=== PATIENT | male | born 1990 | race Caucasian/White ===

== ENCOUNTER → 2019-11-09 | Outpatient (CLI) | payer MEDICAID ==
--- NOTE | 2019-11-09 14:29 | Diagnostic Imaging Report ---
INDICATION: Pre-MRI screening. TIME OF EXAM: 2:17 PM Single view of the orbits was performed. No radiopaque orbital foreign bodies are identified. IMPRESSION: No radiopaque orbital foreign bodies. Dictated by: Dictated on workstation # [id number]
--- NOTE | 2019-11-09 15:57 | Diagnostic Imaging Report ---
PROCEDURE: MRI right joint upper extremity without contrast. TECHNIQUE: Multiplanar, multisequence non contrast-enhanced MRI of the right upper extremity was accomplished. INDICATION: Wrist pain. COMPARISON: None available. FINDINGS: Intrinsic ligaments: There is mild widening of the scapholunate interval. The dorsal band of scapholunate ligament appears to remain intact but may be stretched. The volar/palmar band is poorly defined and may be partially torn. TFC articular disc is intact. Lunotriquetral ligament and the central membranous portions of the scapholunate ligament are suboptimally evaluated without intra-articular contrast. Tendons: Flexor tendons are intact without tenosynovitis. Extensor tendons are normally positioned and have no surrounding inflammation. Bones: There is some intramedullary T2 hyperintense signal involving the lunate which has some patchy T1 hypointense signal. Remainder of the osseous structures are normal in signal. Soft tissues: No mass effect on the median or ulnar nerves. No soft tissue ganglion are seen around the wrist. IMPRESSION: 1. Edema-like signal within the lunate is suspicious for early osteonecrosis (Kienb?ck's disease). 2. At least partial tear of the scapholunate ligament, predominantly involving the palmar band. Dictated by: Dictated on workstation # [id number]
== END ==
LOC: RAD 13:51
PROVIDERS: ATTEND Nurse Practitioner
DX: M25.331 Other instability, right wrist (principal)
CPT/HCPCS: 73221

== ENCOUNTER → 2022-04-23 | Outpatient (CLI) | payer MEDICAID ==
--- NOTE | 2022-04-23 17:44 | Diagnostic Imaging Report ---
EXAMINATION: Right wrist radiographs, 4 views. COMPARISON: None. HISTORY: 31-year-old male, right wrist pain. FINDINGS: There is no identified acute fracture. Bone mineralization and alignment is unremarkable. Joint spaces are well preserved. There is no radiopaque foreign body. IMPRESSION: 1. Unremarkable radiographs of the right wrist. Dictated by: Dictated on workstation # [id number]
== END ==
LOC: RAD FS 11:01
PROVIDERS: ATTEND Nurse Practitioner
DX: M25.331 Other instability, right wrist (principal)
CPT/HCPCS: 73110

== ENCOUNTER → 2022-09-29 | Outpatient (CLI) | payer MEDICAID | LOC: CARDFS 14:14 | PROVIDERS: ATTEND Internal Medicine Cardiovascular Disease | DX: R06.09 Other forms of dyspnea (principal) | CPT/HCPCS: 93306 ==

== ENCOUNTER 2023-01-11 05:29 | Emergency (ER) | payer MEDICAID ==
[~2023-01-11] VITALS: Ht 172.7 cm; Wt 96.2 kg
[2023-01-11] MEDS ORDERED: KETOROLAC INJ 15 MG/ML VIAL IM ONE (06:00)
--- NOTE | 2023-01-11 06:03 | ED Lower Extremity ---
General Chief Complaint: Lower Extremity Stated Complaint: RIGHT ANKLE PAIN Nursing Triage Note: Pt presents per POV to ED ambulating to ED Overflow reporting R foot pain that first began on Wednesday morning when he awoke. Pt has tried resting and ice application but awoke again at 0100 and severe pain began. Denies injury/trauma Source: patient Exam Limitations: no limitations History of Present Illness Date Seen by Provider: Jan 11, 2023 Time Seen by Provider: 05:33 Initial Comments 32-year-old male with no pertinent past medical history coming in due to right Achilles pain. This started Wednesday after "playing rough" with the kids including a lot of wrestling. He never felt a pop, but woke up Wednesday morning with a lot more pain. Now this morning around 1 AM when he woke up the pain was significant. He took some Tylenol and 1/4 pill of the muscle relaxer which did not help. Denies any fever, redness, swelling, recent surgery, history of DVT or PE, hemoptysis, chest pain, shortness of breath, or any other concerns. It is difficult to walk. Allergies and Home Medications Allergies Coded Allergies: amoxicillin (Unverified Adverse Reaction, Unknown, 01/11/23) Patient Home Medication List Home Medication List Reviewed: Yes No Active Prescriptions or Reported Meds Review of Systems Constitutional: No fever EENTM: no symptoms reported Respiratory: no symptoms reported Cardiovascular: no symptoms reported Gastrointestinal: no symptoms reported Genitourinary: no symptoms reported Musculoskeletal: see HPI Skin: no symptoms reported Psychiatric/Neurological: No Symptoms Reported Past Tcfmksz-Bfdinc-Kqtsam Hx Patient Social History Tobacco Use?: No Use of E-Cig and/or Vaping dev: No Substance use?: No Alcohol Use?: Yes Alcohol Frequency: Once in a while Pt feels they are or have been: No Immunizations Up To Date Influenza Vaccine Up-to-Date: No; Not Current First/Initial COVID19 Vaccinat: Unvaccinated Past Medical History Surgery/Hospitalization HX: ORIF R hand, ORIF L foot Physical Exam Vital Signs Vital Signs - First Documented 01/11/23 05:32 Temp 36.8 Pulse 75 Resp 20 B/P (MAP) 136/109 (118) Pulse Ox 98 O2 Delivery Room Air Capillary Refill : Less Than 3 Seconds Height, Weight, BMI Height: '" Weight: lbs. oz. kg; 32.00 BMI Method: General Appearance: WD/WN, mild distress HEENT: PERRL/EOMI, normal ENT inspection, pharynx normal Neck: non-tender, full range of motion, supple, normal inspection Cardiovascular: regular rate, rhythm, no edema, no murmur Respiratory: chest non-tender, lungs clear, normal breath sounds, no respiratory distress, no accessory muscle use Knees: bilateral knee non-tender, bilateral knee normal inspection, bilateral knee normal range of motion, bilateral knee no evidence of injury Ankles: left ankle non-tender; bilateral ankle normal inspection; left ankle normal range of motion, left ankle no evidence of injury; right ankle other (Pain with light touch to the retro-Achilles bursa as well as the distal Achilles itself, no calf tenderness at the calf itself, but does aggravate the Achilles, neurovascularly intact) Feet: bilateral foot non-tender, bilateral foot normal inspection, bilateral foot normal range of motion, bilateral foot no evidence of injury Neurologic/Tendon: normal sensation, normal motor functions, normal tendon functions Neurologic/Psychiatric: no motor/sensory deficits, alert, normal mood/affect Skin: normal color, warm/dry Progress/Results/Core Measures Results/Orders My Orders Orders - NATO NICHOLS MD Ketorolac Injection (Ketorolac Injection (01/11/23 06:00) Vital Signs/I&O 01/11/23 05:32 Temp 36.8 Pulse 75 Resp 20 B/P (MAP) 136/109 (118) Pulse Ox 98 O2 Delivery Room Air Blood Pressure Mean: 118 Progress Progress Note : Progress Note 32-year-old male with above history coming in due to right Achilles pain. ABCs were intact and vitals were stable on presentation. His Achilles is intact on exam with no evidence of rupture. He is tender in the body of the Achilles as well as the retro-Achilles bursa making the differential more likely Achilles tendinitis versus retro-Achilles bursitis. Clinically not consistent with a DVT. I did a [id number] ultrasound as well, confirming his Achilles is intact, no fluid collections, and no superficial or deep venous thrombosis based on my exam as well. He will be given a shot of Toradol here and should follow- up with the orthopedist here in town with a phone call this morning. Departure Impression Primary Impression: Achilles tendinitis, left leg Disposition: 01 HOME, SELF-CARE Condition: Stable Departure-Patient Inst. Decision time for Depature: 06:05 Referrals: MARYELLEN GATES MD (PCP) Primary Care Physician TITO BALLARD Patient Instructions: Achilles Tendinopathy (DC) Add. Discharge Instructions: Based on the exam and the ultrasound we did in the ER, this is likely Achilles tendinitis versus retro-Achilles bursitis. We gave you a shot of Toradol in the ER. After 6 hours from now, you can take your prescription strength ibuprofen which will help with this. Call Nitish Ballard this morning to schedule an appointment as well. It did not look like a DVT based on her exam which is a blood clot in the legs. This typically is some type of injury or overuse which will get better with time. Scripts Cyclobenzaprine HCl (Cyclobenzaprine HCl) 10 Mg Tablet 10 MG PO Q8H PRN for SPASMS for 5 Days, #15 TAB 0 Refills Prov: NATO NICHOLS MD 01/11/23 Ibuprofen (Ibuprofen) 800 Mg Tablet 800 MG PO Q8H PRN for PAIN for 7 Days, #21 TAB 0 Refills Prov: NATO NICHOLS MD 01/11/23 Work/School Note: Work Release Form Date Seen in the Emergency Department: Jan 11, 2023 Return to Work: Jan 12, 2023 Restrictions: No Restrictions NATO NICHOLS MD Jan 11, 2023 06:03
[2023-01-11] MEDS ORDERED: CYCL10TA25 PO (06:04)
[2023-01-11] MEDS ORDERED: IBUP-1780 PO (06:04)
[2023-01-11 06:06] VITALS: BP 136/109
== END 2023-01-11 06:06 | disposition home or self-care (01) ==
LOC: EDUNIT# 05:29 → ER FS 05:30
DX: M76.61 Achilles tendinitis, right leg (principal)
CPT/HCPCS: 99284